=== PATIENT | male | born 1965 | race Caucasian/White ===

== ENCOUNTER → 2020-11-04 | Outpatient (CLI) | payer BC | LOC: KOH-I 10:06 | DX: R05 Cough (principal); R06.02 Shortness of breath | CPT/HCPCS: 71046 ==

== ENCOUNTER → 2020-11-24 | Outpatient (CLI) | payer BC, OTHER | LOC: HEART 5 14:02 | DX: R07.89 Other chest pain (principal); R06.00 Dyspnea, unspecified ==